=== PATIENT | female | born 1990 | race Caucasian/White ===

== ENCOUNTER → 2023-12-29 08:54 | Outpatient (REF) | payer OTHER, SELFPAY | LOC: HWWDC 08:54 | PROVIDERS: ATTENDING PHYSICIAN Obstetrics & Gynecology; FAMILY PHYSICIAN Family Medicine | DX: Z12.31 Encounter for screening mammogram for malignant neoplasm of breast (principal) | CPT/HCPCS: 77063; 77067 ==

== ENCOUNTER → 2024-04-20 08:51 | Outpatient (REF) | payer OTHER, SELFPAY | LOC: WDC 08:51 | PROVIDERS: ATTENDING PHYSICIAN Obstetrics & Gynecology; FAMILY PHYSICIAN Family Medicine | DX: R92.2 Inconclusive mammogram (principal) | CPT/HCPCS: 76641 ==